=== PATIENT | female | born 1995 | race Two or more races ===

== ENCOUNTER 2022-12-25 23:26 | Emergency (ER) | payer MEDICAID ==
[~2022-12-25] VITALS: Ht 154.9 cm; Wt 97.7 kg
[2022-12-26 01:11] VITALS: BP 114/81; PULSE 69; RESP 16; O2SAT 99
== END 2022-12-26 01:13 | disposition home or self-care (01) ==
LOC: ER 23:26
DX: S90.821A Blister (nonthermal), right foot, initial encounter (principal); X58.XXXA Exposure to other specified factors, initial encounter; Y93.89 Activity, other specified; Y92.89 Other specified places as the place of occurrence of the external cause; Y99.8 Other external cause status
CPT/HCPCS: 10140